=== PATIENT | female | born 1955 | race Caucasian/White ===

== ENCOUNTER 2022-05-22 20:11 | Emergency (ER) | payer BC ==
--- NOTE | 2022-05-22 20:35 | RAD REPORT ---
EXAM DESCRIPTION: CT - Head Brain Wo Cont - 05/22/2022 8:28 pm CLINICAL HISTORY: Left sided weakness, fatigue, slurred speech COMPARISON: No comparisons TECHNIQUE: Axial 5 mm thick images of the head were obtained without IV contrast. All CT scans are performed using dose optimization technique as appropriate and may include automated exposure control or mA/KV adjustment according to patient size. FINDINGS: No intracranial hemorrhage, mass, edema or shift of mid-line structures. No acute cortical based infarction identified. No areas of cortical edema or sulcal effacement seen. Atrophy changes a re mild. Ventricles are in proportion to the volume loss. No abnormal extra-axial fluid collections. Chronic ischemic changes are minimal. Mastoid air cells and visualized portions of the paranasal sinuses are clear. No acute bony findings. Findings telephoned to Dr Zuñiga 8:32 p.m. IMPRESSION: Negative non-contrast CT head examination for hemorrhage or other acute intracranial fin ding.
--- NOTE | 2022-05-22 20:45 | EDPHYS ---
Physician Documentation [facility] Name: Lindy López Age: 66 yrs Sex: Female : 1955 Arrival Date: 05/22/2022 Time: 20:14 Bed 20 Private MD: ED Physician Martínez Zuñiga HPI: 05/22 20:38 This 66 yrs old Female presents to ER via Unassigned with complaints of asha Weakness, Slurred Speech, S/S of Possible Stroke. 20:38 The patient presents to the emergency department with weakness of the a speech or asha higher order brain function problem, aphasia, that is mild, difficulty standing, the patient is off balance, the patient falls to the left, the patient is generally weak, difficult walking, the patient is off balance. Onset: The symptoms/episode began/occurred at 17:54. Context: occurred while the patient was walking. Associated signs and symptoms: Pertinent positives: dizziness. Historical: - Allergies: 20:41 No Known Allergies; ld1 - Home Meds: 20:41 levothyroxine oral [Active]; Myrbetriq 25 mg oral Tb24 1 tab once daily [Active]; ld1 tamoxifen 20 mg oral tab 1 tab once daily [Active]; - PMHx: 20:41 Hypercholesterolemia; ld1 - PSHx: 20:41 None; ld1 - Immunization history:: Adult Immunizations up to date, Client reports receiving the 2nd dose of the Covid vaccine. - Social history:: Smoking status: Patient denies any tobacco usage or history of. Patient/guardian denies using alcohol. - Family history:: not pertinent. ROS: 20:38 Constitutional: Negative for fever, chills, and weight loss, Eyes: Negative for injury, asha pain, redness, and discharge, ENT: Negative for injury, pain, and discharge, Neck: Negative for injury, pain, and swelling, Cardiovascular: Negative for chest pain, palpitations, and edema, Respiratory: Negative for shortness of breath, cough, wheezing, and pleuritic chest pain, Abdomen/GI: Negative for abdominal pain, nausea, vomiting, diarrhea, and constipation, Back: Negative for injury and pain, : Negative for injury, bleeding, discharge, and swelling, Skin: Negative for injury, rash, and discoloration, Psych: Negative for depression, anxiety, suicide ideation, homicidal ideation, and hallucinations, Allergy/Immunology: Negative for hives, rash, and allergies, Endocrine: Negative for neck swelling, polydipsia, polyuria, polyphagia, and marked weight changes, Hematologic/Lymphatic: Negative for swollen nodes, abnormal bleeding, and unusual bruising. 20:38 MS/extremity: Positive for decreased range of motion, of the left arm and left leg. 20:38 Neuro: Positive for speech changes, weakness, of the left arm and left leg. Exam: 20:38 Constitutional: This is a well developed, well nourished patient who is awake, alert, asha and in no acute distress. Head/Face: Normocephalic, atraumatic. Eyes: Pupils equal round and reactive to light, extra-ocular motions intact. Lids and lashes normal. Conjunctiva and sclera are non-icteric and not injected. Cornea within normal limits. Periorbital areas with no swelling, redness, or edema. ENT: Nares patent. No nasal discharge, no septal abnormalities noted. Tympanic membranes are normal and external auditory canals are clear. Oropharynx with no redness, swelling, or masses, exudates, or evidence of obstruction, uvula midline. Mucous membranes moist. Neck: Trachea midline, no thyromegaly or masses palpated, and no cervical lymphadenopathy. Supple, full range of motion without nuchal rigidity, or vertebral point tenderness. No Meningismus. Chest/axilla: Normal chest wall appearance and motion. Nontender with no deformity. No lesions are appreciated. Cardiovascular: Regular rate and rhythm with a normal S1 and S2. No gallops, murmurs, or rubs. Normal PMI, no JVD. No pulse deficits. Respiratory: Lungs have equal breath sounds bilaterally, clear to auscultation and percussion. No rales, rhonchi or wheezes noted. No increased work of breathing, no retractions or nasal flaring. Abdomen/GI: Soft, non-tender, with normal bowel sounds. No distension or tympany. No guarding or rebound. No evidence of tenderness throughout. Back: No spinal tenderness. No costovertebral tenderness. Full range of motion. Skin: Warm, dry with normal turgor. Normal color with no rashes, no lesions, and no evidence of cellulitis. MS/ Extremity: Pulses equal, no cyanosis. Neurovascular intact. Full, normal range of motion. Psych: Awake, alert, with orientation to person, place and time. Behavior, mood, and affect are within normal limits. 20:38 Neuro: Orientation: is normal, appropriate for stated age, no acute changes, Mentation: is normal, appropriate for stated age, no acute changes, Memory: is normal, appropriate for stated age, no acute changes, Cranial nerves: grossly normal, is grossly normal based on the patient's age, Cerebellar function: is grossly normal, is grossly normal based on the patient's age, no acute changes, Motor: moves all fours, strength is 4/5 in the left arm and left leg, Gait: is unsteady, falls to left, needs assistance, seizure activity, is not displayed by the patient. Vital Signs: 20:38 BP 137 / 70; Pulse 82; Resp 18; Temp 97.1(O); Pulse Ox 98% on R/A; Weight 78.93 kg; ld1 Height 5 ft. 2 in. (157.48 cm); Pain 0/10; 20:50 Weight 80.1 kg; ld1 20:50 Body Mass Index 32.30 (80.10 kg, 157.48 cm) ld1 NIH Stroke Scale Scores: 20:25 NIHSS Score: 3 ke1 20:38 NIHSS Score: [address] [facility] 21:00 NIHSS Score: 3 ke1 21:00 NIHSS Score: 0 ke1 0811 00:05 NIHSS Score: 0 ke1 MDM: 05/22 20:24 Patient medically screened. [facility] 20:45 Data reviewed: vital signs, nurses notes, lab test result(s), EKG, radiologic studies, [facility] CT scan, plain films. Data interpreted: classroom monitor: rate is 82 beats/min, rhythm is regular, Pulse oximetry: on room air is 98 %. Test interpretation: by ED physician or midlevel provider: ECG, plain radiologic studies. Counseling: I had a detailed discussion with the patient and/or guardian regarding: the historical points, exam findings, and any diagnostic results supporting the discharge/admit diagnosis, lab results, radiology results, the need to transfer to another facility, for higher level of care, [facility] does not immediately have the required specialist. 05/22 20:27 Order name: Basic Metabolic Panel; Complete Time: 21:[address] [facility] 05/22 20:27 Order name: CBC with Diff; Complete Time: 21:[address] [facility] 05/22 20:27 Order name: LFT's; Complete Time: 21:[address] [facility] 05/22 20:27 Order name: Magnesium; Complete Time: 21:[address] [facility] 05/22 20:27 Order name: NT PRO-BNP; Complete Time: 21:[address] [facility] 05/22 20:27 Order name: PT-INR; Complete Time: 21:[address] [facility] 05/22 20:27 Order name: Troponin HS; Complete Time: 21:[address] [facility] 05/22 20:27 Order name: XRAY Chest (1 view); Complete Time: 21:[address] [facility] 05/22 20:27 Order name: CT Head Angio [facility] 05/22 20:27 Order name: CT Neck Angio [facility] 05/22 20:27 Order name: SARS RAPID; Complete Time: 21:[address] [facility] 05/22 21:50 Order name: Glucose, Ancillary Testing; Complete Time: 21:56 EDMS 05/22 20:27 Order name: EKG; Complete Time: 20:[address] [facility] 05/22 20:27 Order name: Cardiac monitoring; Complete Time: 20:[address] [facility] 05/22 20:27 Order name: EKG - Nurse/Tech; Complete Time: 20:[address] [facility] 05/22 20:27 Order name: IV Saline Lock; Complete Time: 20:[address] [facility] 05/22 20:27 Order name: Labs collected and sent; Complete Time: 20:[address] [facility] 05/22 20:27 Order name: O2 Per Protocol; Complete Time: 20:[address] [facility] 05/22 20:27 Order name: O2 Sat Monitoring; Complete Time: 20:[address] [facility] 05/22 20:34 Order name: Ct Stroke Brain Wo Cont; Complete Time: 20:55 EDMS Administered Medications: 21:05 Drug: NS 0.9% 1000 ml Route: IV; Rate: 1 bolus; Site: left antecubital; ld1 23:00 Follow up: IV Status: Completed infusion ke1 21:05 Drug: foLIC Acid 1 mg Route: IVPB; Site: left antecubital; ld1 21:06 Follow up: IV Status: Completed infusion ke 21:05 Drug: Pepcid (famotidine) 20 mg Route: IVP; Site: left antecubital; ld1 21:30 Follow up: Response: No adverse reaction ke1 21:05 Drug: TNK FOR STROKE - Tenecteplase 0.25 mg/kg {Co-Signature: ld1 (Juliette mckinney1 RN).} Route: IV; Rate: per protocol; Site: left antecubital; 21:05 Follow up: IV Status: Completed infusion ke1 Point of Care Testing: Blood Glucose: 21:50 Blood Glucose: 100 mg/dL; ke1 Ranges: Critical Glucose Levels:Adult <50 mg/dl or >400 mg/dl <40 mg/dl or >180 mg/dl Disposition Summary: 05/22/22 20:44 Transfer Ordered Transfer Location: [facility] asha Reason: Higher level of care asha Condition: Fair asha Problem: new asha Symptoms: are unchanged asha Accepting Physician: to nicu(05/23/22 00:34) ke1 Diagnosis - Cerebral infarction, unspecified asha - Aphasia following cerebral infarction asha Forms: - Medication Reconciliation Form asha - SBAR form asha Critical care time excluding procedures: 20:44 Critical care time: Bedside Care: 25 minutes, Consultation: 5 minutes, Family asha Intervention: 20 minutes. Total time: 50 minutes NIH Stroke Scale - NIH Stroke Score Date: 05/22/2022 Time: 20:25 Total Score = 3 1a. Level of Consciousness (LOC) - 0(Alert) 1b. Level of Consciousness (LOC) (Month \T\ Age) - 0(Both) 1c. LOC Commands (Open \T\ Closes Eyes/Diet Clerk) - 0(Both) 2. Best Gaze (Lateral Gaze Paresis) - 0(Normal) 3. Visual Field Loss - 0(No visual loss) 4. Facial Palsy - 0(Normal) 5a. Left Arm: Motor (10-second hold) - 0(No drift) 5b. Right Arm: Motor (10-second hold) - 0(No drift) 6a. Left Leg: Motor (5-second hold - always test supine) - 1(Drift) 6b. Right Leg: Motor (5-second hold - always test supine) - 1(Drift) 7. Limb Ataxia (finger/nose \T\ heel/oneil - test with eyes open) - 0(Absent) 8. Sensory Loss (pinprick arms/legs/face) - 0(Normal) 9. Best Language: Aphasia (description/naming/reading) - 1(Mild to moderate aphasia) 10. Dysarthria (speech clarity - read or repeat words) - 0(Normal) 11. Extinction and Inattention (visual/tactile/auditory/spatial/personal) - 0(No abnormality) Initials: ke1 NIH Stroke Scale - NIH Stroke Score Date: 05/22/2022 Time: 20:38 Total Score = 3 1a. Level of Consciousness (LOC) - 0(Alert) 1b. Level of Consciousness (LOC) (Month \T\ Age) - 0(Both) 1c. LOC Commands (Open \T\ Closes Eyes/Diet Clerk) - 0(Both) 2. Best Gaze (Lateral Gaze Paresis) - 0(Normal) 3. Visual Field Loss - 0(No visual loss) 4. Facial Palsy - 0(Normal) 5a. Left Arm: Motor (10-second hold) - 1(Drift) 5b. Right Arm: Motor (10-second hold) - 0(No drift) 6a. Left Leg: Motor (5-second hold - always test supine) - 1(Drift) 6b. Right Leg: Motor (5-second hold - always test supine) - 0(No drift) 7. Limb Ataxia (finger/nose \T\ heel/oneil - test with eyes open) - 0(Absent) 8. Sensory Loss (pinprick arms/legs/face) - 0(Normal) 9. Best Language: Aphasia (description/naming/reading) - 1(Mild to moderate aphasia) 10. Dysarthria (speech clarity - read or repeat words) - 0(Normal) 11. Extinction and Inattention (visual/tactile/auditory/spatial/personal) - 0(No abnormality) Initials: asha NIH Stroke Scale - NIH Stroke Score Date: 05/22/2022 Time: 21:00 Total Score = 3 1a. Level of Consciousness (LOC) - 0(Alert) 1b. Level of Consciousness (LOC) (Month \T\ Age) - 0(Both) 1c. LOC Commands (Open \T\ Closes Eyes/Diet Clerk) - 0(Both) 2. Best Gaze (Lateral Gaze Paresis) - 0(Normal) 3. Visual Field Loss - 0(No visual loss) 4. Facial Palsy - 0(Normal) 5a. Left Arm: Motor (10-second hold) - 0(No drift) 5b. Right Arm: Motor (10-second hold) - 0(No drift) 6a. Left Leg: Motor (5-second hold - always test supine) - 1(Drift) 6b. Right Leg: Motor (5-second hold - always test supine) - 1(Drift) 7. Limb Ataxia (finger/nose \T\ heel/oneil - test with eyes open) - 0(Absent) 8. Sensory Loss (pinprick arms/legs/face) - 0(Normal) 9. Best Language: Aphasia (description/naming/reading) - 1(Mild to moderate aphasia) 10. Dysarthria (speech clarity - read or repeat words) - 0(Normal) 11. Extinction and Inattention (visual/tactile/auditory/spatial/personal) - 0(No abnormality) Initials: ke1 NIH Stroke Scale - NIH Stroke Score Date: 05/22/2022 Time: 21:00 Total Score = 0 1a. Level of Consciousness (LOC) - 0(Alert) 1b. Level of Consciousness (LOC) (Month \T\ Age) - 0(Both) 1c. LOC Commands (Open \T\ Closes Eyes/Diet Clerk) - 0(Both) 2. Best Gaze (Lateral Gaze Paresis) - 0(Normal) 3. Visual Field Loss - 0(No visual loss) 4. Facial Palsy - 0(Normal) 5a. Left Arm: Motor (10-second hold) - 0(No drift) 5b. Right Arm: Motor (10-second hold) - 0(No drift) 6a. Left Leg: Motor (5-second hold - always test supine) - 0(No drift) 6b. Right Leg: Motor (5-second hold - always test supine) - 0(No drift) 7. Limb Ataxia (finger/nose \T\ heel/oneil - test with eyes open) - 0(Absent) 8. Sensory Loss (pinprick arms/legs/face) - 0(Normal) 9. Best Language: Aphasia (description/naming/reading) - 0(No aphasia) 10. Dysarthria (speech clarity - read or repeat words) - 0(Normal) 11. Extinction and Inattention (visual/tactile/auditory/spatial/personal) - 0(No abnormality) Initials: ke1 NIH Stroke Scale - NIH Stroke Score Date: 05/23/2022 Time: 00:05 Total Score = 0 1a. Level of Consciousness (LOC) - 0(Alert) 1b. Level of Consciousness (LOC) (Month \T\ Age) - 0(Both) 1c. LOC Commands (Open \T\ Closes Eyes/Diet Clerk) - 0(Both) 2. Best Gaze (Lateral Gaze Paresis) - 0(Normal) 3. Visual Field Loss - 0(No visual loss) 4. Facial Palsy - 0(Normal) 5a. Left Arm: Motor (10-second hold) - 0(No drift) 5b. Right Arm: Motor (10-second hold) - 0(No drift) 6a. Left Leg: Motor (5-second hold - always test supine) - 0(No drift) 6b. Right Leg: Motor (5-second hold - always test supine) - 0(No drift) 7. Limb Ataxia (finger/nose \T\ heel/oneil - test with eyes open) - 0(Absent) 8. Sensory Loss (pinprick arms/legs/face) - 0(Normal) 9. Best Language: Aphasia (description/naming/reading) - 0(No aphasia) 10. Dysarthria (speech clarity - read or repeat words) - 0(Normal) 11. Extinction and Inattention (visual/tactile/auditory/spatial/personal) - 0(No abnormality) Initials: ke1 Signatures: Dispatcher [employer] EDMS Martínez Zuñiga MD MD cha Dibbern, Lauren, RN RN ld1 Luz Fountain RN RN ke1 Juliette Blevins RN ld1 Corrections: (The following items were deleted from the chart) 20:34 20:23 Head Brain Wo Cont+CT.RAD.BRZ ordered. EDMS EDMS 20:35 20:29 CT-STROKE BRAIN W/O CONTRAST+CT.RAD.BRZ ordered. EDMS EDMS 05/23 00:34 05/22 20:44 to [facility] asha mendoza
--- NOTE | 2022-05-22 20:45 | ER ---
Nurse's Notes [facility] Name: Lindy López Age: 66 yrs Sex: Female : 1955 Arrival Date: 05/22/2022 Time: 20:14 Bed 20 Private MD: Diagnosis: Cerebral infarction, unspecified;Aphasia following cerebral infarction Presentation: 05/22 20:38 Chief complaint: Patient states: Pt c/o left sided weakness, slurred speech, dizziness. ld1 Last known well 1745 per . [place] 1745 this evening. Coronavirus screen: At this time, the client does not indicate any symptoms associated with coronavirus-19. Ebola Screen: No symptoms or risks identified at this time. No acute neurological deficit is noted. Initial Sepsis Screen: Does the patient meet any 2 criteria? No. Patient's initial sepsis screen is negative. Does the patient have a suspected source of infection? No. Patient's initial sepsis screen is negative. Risk Assessment: Do you want to hurt yourself or someone else? Patient reports no desire to harm self or others. Onset of symptoms was May 22, 2022. 20:38 Method Of Arrival: Ambulatory ld1 20:38 Acuity: CONCEPCIÓN 1 ld1 Triage Assessment: 20:41 The onset of the patients symptoms was May 22, 2022 at 17:45. General: Appears in no ld1 apparent distress. comfortable, Behavior is calm, cooperative, appropriate for age. Pain: Denies pain. EENT: No signs and/or symptoms were reported regarding the EENT system. Neuro: Level of Consciousness is awake, alert, obeys commands, Oriented to person, place, time, situation, Biofuels Plant Manager are equal bilaterally Moves all extremities. Gait is unsteady, Speech is slurred, Reports dizziness, weakness since 1745. Cardiovascular: Capillary refill < 3 seconds Patient's skin is warm and dry. Respiratory: Airway is patent Respiratory effort is even, unlabored. GI: Abdomen is round non-distended. : No signs and/or symptoms were reported regarding the genitourinary system. Derm: No signs and/or symptoms reported regarding the dermatologic system. Musculoskeletal: No signs and/or symptoms reported regarding the musculoskeletal system. Stroke Activation: Symtpom onset >3 hours and < 6 hours Physician: Stroke Attending; Name: ; Notified At: 20:16; Arrived At: Physician: Chief Stroke Resident; Name: ; Notified At: 20:16; Arrived At: Physician: Stroke Resident; Name: ; Notified At: 20:16; Arrived At: Physician: ED Attending; Name: ; Notified At: 20:16; Arrived At: Physician: ED Resident; Name: ; Notified At: 20:16; Arrived At: Historical: - Allergies: 20:41 No Known Allergies; ld1 - Home Meds: 20:41 levothyroxine oral [Active]; Myrbetriq 25 mg oral Tb24 1 tab once daily [Active]; ld1 tamoxifen 20 mg oral tab 1 tab once daily [Active]; - PMHx: 20:41 Hypercholesterolemia; ld1 - PSHx: 20:41 None; ld1 - Immunization history:: Adult Immunizations up to date, Client reports receiving the 2nd dose of the Covid vaccine. - Social history:: Smoking status: Patient denies any tobacco usage or history of. Patient/guardian denies using alcohol. - Family history:: not pertinent. Screenin:25 Abuse screen: Denies threats or abuse. Nutritional screening: No deficits noted. ke1 Tuberculosis screening: No symptoms or risk factors identified. Fall Risk Fall in past 12 months (25 points). Secondary diagnosis (15 points) CVA, probable stroke. IV access (20 points). Ambulatory Aid- None/Bed Rest/Nurse Assist (0 pts). Gait- Normal/Bed Rest/Wheelchair (0 pts) Mental Status- Oriented to own ability (0 pts). Total Evans Fall Scale indicates High Risk Score (45 or more points). Fall prevention measures have been instituted. Side Rails Up X 2 Placed Close to Nursing Station 1:1 Attendant Assigned Frequent Obs/Assessments Occuring Family Present and informed to notify staff if the need to leave the bedside As available patient and family educated on Fall Prevention Program and Strategies. Assessment: 20:25 VAN Scoring: Arm Drift: Minor drift Visual Disturbance: No visual disturbance noted. ke1 Aphasia: Expressive aphasia noted. Provider notified of +VAN scoring. Neglect: No neglect noted. 21:00 TNKase (Tenecteplase) Screening: Indications: Definite evidence of stroke, ischemic, ke1 embolic, or hypertensive: Treatment will start within 4.5 hours onset of symptoms: No evidence of intracranial hemorrhage or CT of head and no evidence of peripheral hemorrhage or recent CVA: Consent for thrombolytic therapy:. 21:45 Patient has been NPO before screening. The patient is alert, and able to follow ke1 commands. The patient does not exhibit slurred or garbled speech. The patient is not exhibiting difficulty speaking. The patient does not exhibit difficulty understanding words. The patient is unable to swallow own secretions without drooling or the need for suction. Patient tolerated one teaspoon of water. No drooling, immediate coughing, gurgling, or clearing of the throat was noted. The patient passed the bedside swallow screening. Oral medications may be given as ordered. Contact Physician for further diet orders. Provider notified of bedside swallow screening results: Martínez Zuñiga MD. Vital Signs: 20:38 BP 137 / 70; Pulse 82; Resp 18; Temp 97.1(O); Pulse Ox 98% on R/A; Weight 78.93 kg; ld1 Height 5 ft. 2 in. (157.48 cm); Pain 0/10; 20:50 Weight 80.1 kg; ld1 20:50 Body Mass Index 32.30 (80.10 kg, 157.48 cm) ld1 NIH Stroke Scale Scores: 20:25 NIHSS Score: 3 ke1 20:38 NIHSS Score: 3 asha 21:00 NIHSS Score: 3 ke1 21:00 NIHSS Score: 0 ke1 05/23 00:05 NIHSS Score: 0 ke1 ED Course: 05/22 20:14 Patient arrived in ED. bp1 20:24 Martínez Zuñiga MD is Attending Physician. asha 20:25 Fall risk band placed. Bed in low position. Call light in reach. Side rails up X 1. ke1 Side rails up X2. Adult w/ patient. 20:25 stroke assessment. ke1 20:34 Ct Stroke Brain Wo Cont In Process Unspecified. EDMS 20:38 Initiated transfer to [facility], spoke with Lashell Padilla. wm 20:41 Triage completed. ld1 20:41 Arm band placed on right wrist. ld1 20:49 SARS RAPID Sent. ld1 21:00 Pt. accepted for transfer to [facility] by Dr. Nirav Urbina \T\ 20:56 per Lashell Padilla. wm 21:06 SARS RAPID Sent. ld1 21:07 Luz Fountain, RN is Primary Nurse. ke1 21:16 XRAY Chest (1 view) In Process Unspecified. EDMS 21:56 CT Head Angio In Process Unspecified. EDMS 21:56 CT Neck Angio In Process Unspecified. EDMS 05/23 00:04 Patient transferred, IV remains in place. ke1 Administered Medications: 05/22 21:05 Drug: NS 0.9% 1000 ml Route: IV; Rate: 1 bolus; Site: left antecubital; ld1 23:00 Follow up: IV Status: Completed infusion ke1 21:05 Drug: foLIC Acid 1 mg Route: IVPB; Site: left antecubital; ld1 21:06 Follow up: IV Status: Completed infusion ke1 21:05 Drug: Pepcid (famotidine) 20 mg Route: IVP; Site: left antecubital; ld1 21:30 Follow up: Response: No adverse reaction ke1 21:05 Drug: TNK FOR STROKE - Tenecteplase 0.25 mg/kg {Co-Signature: ld1 (Juliette mendoza RN).} Route: IV; Rate: per protocol; Site: left antecubital; 21:05 Follow up: IV Status: Completed infusion ke1 Medication: 05/23 00:04 VIS not applicable for this client. ke1 Point of Care Testing: Blood Glucose: 05/22 21:50 Blood Glucose: 100 mg/dL; ke1 Ranges: Outcome: 20:44 ER care complete, transfer ordered by MD. barry 05/23 00:04 Transferred by ground EMS to [facility]. ke1 Condition: good Instructed on the need for transfer. 00:34 Patient left the ED. ke1 NIH Stroke Scale - NIH Stroke Score Date: 05/22/2022 Time: 20:25 Total Score = 3 1a. Level of Consciousness (LOC) - 0(Alert) 1b. Level of Consciousness (LOC) (Month \T\ Age) - 0(Both) 1c. LOC Commands (Open \T\ Closes Eyes/Merchandise Presentation Manager) - 0(Both) 2. Best Gaze (Lateral Gaze Paresis) - 0(Normal) 3. Visual Field Loss - 0(No visual loss) 4. Facial Palsy - 0(Normal) 5a. Left Arm: Motor (10-second hold) - 0(No drift) 5b. Right Arm: Motor (10-second hold) - 0(No drift) 6a. Left Leg: Motor (5-second hold - always test supine) - 1(Drift) 6b. Right Leg: Motor (5-second hold - always test supine) - 1(Drift) 7. Limb Ataxia (finger/nose \T\ heel/oneil - test with eyes open) - 0(Absent) 8. Sensory Loss (pinprick arms/legs/face) - 0(Normal) 9. Best Language: Aphasia (description/naming/reading) - 1(Mild to moderate aphasia) 10. Dysarthria (speech clarity - read or repeat words) - 0(Normal) 11. Extinction and Inattention (visual/tactile/auditory/spatial/personal) - 0(No abnormality) Initials: ke1 NIH Stroke Scale - NIH Stroke Score Date: 05/22/2022 Time: 20:38 Total Score = 3 1a. Level of Consciousness (LOC) - 0(Alert) 1b. Level of Consciousness (LOC) (Month \T\ Age) - 0(Both) 1c. LOC Commands (Open \T\ Closes Eyes/Merchandise Presentation Manager) - 0(Both) 2. Best Gaze (Lateral Gaze Paresis) - 0(Normal) 3. Visual Field Loss - 0(No visual loss) 4. Facial Palsy - 0(Normal) 5a. Left Arm: Motor (10-second hold) - 1(Drift) 5b. Right Arm: Motor (10-second hold) - 0(No drift) 6a. Left Leg: Motor (5-second hold - always test supine) - 1(Drift) 6b. Right Leg: Motor (5-second hold - always test supine) - 0(No drift) 7. Limb Ataxia (finger/nose \T\ heel/oneil - test with eyes open) - 0(Absent) 8. Sensory Loss (pinprick arms/legs/face) - 0(Normal) 9. Best Language: Aphasia (description/naming/reading) - 1(Mild to moderate aphasia) 10. Dysarthria (speech clarity - read or repeat words) - 0(Normal) 11. Extinction and Inattention (visual/tactile/auditory/spatial/personal) - 0(No abnormality) Initials: asha NIH Stroke Scale - NIH Stroke Score Date: 05/22/2022 Time: 21:00 Total Score = 3 1a. Level of Consciousness (LOC) - 0(Alert) 1b. Level of Consciousness (LOC) (Month \T\ Age) - 0(Both) 1c. LOC Commands (Open \T\ Closes Eyes/Merchandise Presentation Manager) - 0(Both) 2. Best Gaze (Lateral Gaze Paresis) - 0(Normal) 3. Visual Field Loss - 0(No visual loss) 4. Facial Palsy - 0(Normal) 5a. Left Arm: Motor (10-second hold) - 0(No drift) 5b. Right Arm: Motor (10-second hold) - 0(No drift) 6a. Left Leg: Motor (5-second hold - always test supine) - 1(Drift) 6b. Right Leg: Motor (5-second hold - always test supine) - 1(Drift) 7. Limb Ataxia (finger/nose \T\ heel/oneil - test with eyes open) - 0(Absent) 8. Sensory Loss (pinprick arms/legs/face) - 0(Normal) 9. Best Language: Aphasia (description/naming/reading) - 1(Mild to moderate aphasia) 10. Dysarthria (speech clarity - read or repeat words) - 0(Normal) 11. Extinction and Inattention (visual/tactile/auditory/spatial/personal) - 0(No abnormality) Initials: ke1 NIH Stroke Scale - NIH Stroke Score Date: 05/22/2022 Time: 21:00 Total Score = 0 1a. Level of Consciousness (LOC) - 0(Alert) 1b. Level of Consciousness (LOC) (Month \T\ Age) - 0(Both) 1c. LOC Commands (Open \T\ Closes Eyes/Merchandise Presentation Manager) - 0(Both) 2. Best Gaze (Lateral Gaze Paresis) - 0(Normal) 3. Visual Field Loss - 0(No visual loss) 4. Facial Palsy - 0(Normal) 5a. Left Arm: Motor (10-second hold) - 0(No drift) 5b. Right Arm: Motor (10-second hold) - 0(No drift) 6a. Left Leg: Motor (5-second hold - always test supine) - 0(No drift) 6b. Right Leg: Motor (5-second hold - always test supine) - 0(No drift) 7. Limb Ataxia (finger/nose \T\ heel/oneil - test with eyes open) - 0(Absent) 8. Sensory Loss (pinprick arms/legs/face) - 0(Normal) 9. Best Language: Aphasia (description/naming/reading) - 0(No aphasia) 10. Dysarthria (speech clarity - read or repeat words) - 0(Normal) 11. Extinction and Inattention (visual/tactile/auditory/spatial/personal) - 0(No abnormality) Initials: ke1 NIH Stroke Scale - NIH Stroke Score Date: 05/23/2022 Time: 00:05 Total Score = 0 1a. Level of Consciousness (LOC) - 0(Alert) 1b. Level of Consciousness (LOC) (Month \T\ Age) - 0(Both) 1c. LOC Commands (Open \T\ Closes Eyes/Merchandise Presentation Manager) - 0(Both) 2. Best Gaze (Lateral Gaze Paresis) - 0(Normal) 3. Visual Field Loss - 0(No visual loss) 4. Facial Palsy - 0(Normal) 5a. Left Arm: Motor (10-second hold) - 0(No drift) 5b. Right Arm: Motor (10-second hold) - 0(No drift) 6a. Left Leg: Motor (5-second hold - always test supine) - 0(No drift) 6b. Right Leg: Motor (5-second hold - always test supine) - 0(No drift) 7. Limb Ataxia (finger/nose \T\ heel/oneil - test with eyes open) - 0(Absent) 8. Sensory Loss (pinprick arms/legs/face) - 0(Normal) 9. Best Language: Aphasia (description/naming/reading) - 0(No aphasia) 10. Dysarthria (speech clarity - read or repeat words) - 0(Normal) 11. Extinction and Inattention (visual/tactile/auditory/spatial/personal) - 0(No abnormality) Initials: ke1 Signatures: Dispatcher [employer] Martínez Reyes MD MD cha Paniauga, Brittany bp1 Dibbern, Lauren, RN RN ld1 Claire Carmona Kouassi, RN RN ke1 Juliette Dibbern RN ld1 Corrections: (The following items were deleted from the chart) 05/22 20:34 20:30 In radiology for Head Brain Wo Cont+CT.DANNIELLE. EDMS EDMS 21:52 20:18 NIHSS Score: 3 ke1 ke1
[2022-05-22] MEDS ORDERED: TENECTEPLASE 50 MG/10 ML VIAL IV ONE (21:00)
[2022-05-22] MEDS ORDERED: NA CHLORIDE 0.9% 1,000 ML ONE (21:01)
[2022-05-22] MEDS ORDERED: FAMOTIDINE 20 MG/2 ML VIAL IV ONE (21:01)
[2022-05-22] MEDS ORDERED: FOLIC ACID 5 MG/ML VIAL ONE (21:01)
[2022-05-22 21:03] LABS: Hematocrit 38.9 % (36.0-45.0); MCV 87.3 fL (80-100); RBC Red Blood Cell Count 4.46 M/uL (3.86-4.86)
[2022-05-22 21:04] LABS: Absolute Lymphocytes (CBC) 1.4 K/uL (0.7-4.9); Lymphocytes % 17.2 % (15.3-44.8); MPV 8.3 fL (7.6-11.3)
[2022-05-22 21:06] LABS: Protime INR 0.94
[2022-05-22 21:17] LABS: SARS-CoV-2 Antigen Rapid Res Negative (Negative)
[2022-05-22 21:26] LABS: ALT/SGPT 18 U/L (12-78); AST/SGOT 9 U/L (15-37); Albumin 3.4 g/dL (3.4-5.0); Alkaline Phosphatase 36 U/L (45-117); BUN Blood Urea Nitrogen 16 mg/dL (7-18); Bicarbonate 27 mmol/L (21-32); Bilirubin Total 0.2 mg/dL (0.2-1.0); Glomerular Filtration Rate 86 ml/min (=/>90); Glucose Level 112 mg/dL (74-106); Magnesium 2.1 mg/dL (1.8-2.4); NT PRO-BNP 112 pg/mL (<125); Potassium 4.1 mmol/L (3.5-5.1); Protein, Total 6.6 g/dL (6.4-8.2); Sodium Level 141 mmol/L (136-145); Troponin High Sensitivity 3.5 pg/mL (<58.9)
[2022-05-22 21:44] LABS: Bilirubin Direct < 0.1 mg/dL (0-0.2)
--- NOTE | 2022-05-22 21:52 | RAD REPORT ---
EXAM DESCRIPTION: RAD - Chest Single View - 05/22/2022 9:14 pm CLINICAL HISTORY: COUGH COMPARISON: None TECHNIQUE: AP portable chest image was obtained 05/22/2022 9:14 pm . FINDINGS: No focal mass or consolidation. Interstitial pattern is accentuated by under penetrated. H eart and vasculature are normal. No measurable pleural effusion and no pneumothorax. No acute bony ab normality seen. No acute aortic findings suspected. IMPRESSION: No acute cardiopulmonary process.
--- NOTE | 2022-05-22 22:03 | RAD REPORT ---
EXAM DESCRIPTION: CT - Neck Angio - 05/22/2022 9:54 pm CLINICAL HISTORY: Neuro deficit, acute, stroke suspected TECHNIQUE: During dynamic enhancement using nonionic IV contrast, axial 2 mm thick images of the nec k were obtained. Sagittal and axial reconstruction images were generated using MIP technique and revi ewed. All CT scans are performed using dose optimization technique as appropriate and may include automated exposure control or mA/KV adjustment according to patient size. COMPARISON: CT head same date FINDINGS: No aneurysm or vascular malformation identified. No carotid or vertebral dissection. No aortic arch or great vessel origin abnormality seen. Vertebral artery origins unremarkable as well . No stenosis, vasculitis or other significant carotid artery finding. No focal abnormality of either vertebral artery. Basilar artery is small in size as a normal variant. Patient has large bilateral p osterior communicating arteries supplying all or most of supply for each posterior cerebral artery. T here may be small P1 LEAF COVERER segments. This is all normal anatomic variation. IMPRESSION: Negative CT angio neck examination.
--- NOTE | 2022-05-22 22:05 | RAD REPORT ---
EXAM DESCRIPTION: CT - Head angio - 05/22/2022 9:54 pm CLINICAL HISTORY: Neuro deficit, acute, stroke suspected TECHNIQUE: During dynamic enhancement using nonionic IV contrast, axial 1 millimeter thick images of the head were obtained. Sagittal and axial reconstruction images were generated using MIP technique and reviewed. All CT scans are performed using dose optimization technique as appropriate and may include automated exposure control or mA/KV adjustment according to patient size. COMPARISON: CT head same date, CT angio neck same date FINDINGS: No aneurysm or vascular malformation identified. Major venous sinuses are patent. No stenosis, named branch occlusion, vasculitis or other significant vascular finding identifiable. B ilateral P1 ACCOUNT FINANCIAL MANAGER segments are absent or very small. Large posterior communicating arteries are present . These are normal anatomic variations. IMPRESSION: Negative CT angio head examination.
[2022-05-23 02:56] VITALS: BP 137/70; TEMP 97.1; O2SAT 98
--- NOTE | 2022-05-23 14:32 | EKG ---
Test Date: 2022-05-22 Test Time: 20:47:16 Market Research Executive: MEASUREMENT RESULTS: Intervals: Rate: 78 HI: 136 QRSD: 76 QT: 382 QTc: 435 [place]: P: 25 HI: 136 QRS: 24 T: 29 INTERPRETIVE STATEMENTS: Normal sinus rhythm Low voltage QRS Borderline ECG No previous ECG available for comparison Electronically Signed On 05-23-22 14:30:30 CDT by Emmanuel Stringer
== END 2022-05-23 00:34 | disposition short-term general hospital (02) ==
LOC: ER 20:11
DX: I63.9 Cerebral infarction, unspecified (principal); R47.01 Aphasia; R29.703 NIHSS score 3; E78.00 Pure hypercholesterolemia, unspecified
CPT/HCPCS: 96361; 92977; 93005; 85025; 80048; 36415; 83735; 85610; 82565; 82947; 80076; 84484; 83880; 70496; 70498; 70450; 71045; 96375; 96374; 99285; 87811; Q9967; J3101; J7030